=== PATIENT | male | born 1985 | race Caucasian/White ===

== ENCOUNTER 2016-11-20 09:44 | Emergency (ER) | payer OTHER, BC ==
[2016-11-20 09:49] VITALS: TEMP 97.4; BMI 28.0
[2016-11-20] MEDS ORDERED: IBUPROFEN 600 MG TABLET (FP) PO ONE ×2 (10:10→10:13)
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
[2016-11-20] MEDS ORDERED: IBUPROFEN 400 MG TABLET (FP) PO ONE (10:15)
[2016-11-20 11:05] VITALS: BP 125/78; PULSE 73
== END 2016-11-20 11:05 | disposition home or self-care (01) ==
LOC: JER 09:44
DX: S46.912A Strain of unspecified muscle, fascia and tendon at shoulder and upper arm level, left arm, initial encounter (principal); W18.39XA Other fall on same level, initial encounter; Y93.89 Activity, other specified; Y92.89 Other specified places as the place of occurrence of the external cause; Y99.0 Civilian activity done for income or pay; K21.9 Gastro-esophageal reflux disease without esophagitis
CPT/HCPCS: 73030-TC-LT; 99284-25

== ENCOUNTER 2017-06-05 19:29 | Emergency (ER) | payer BC, OTHER ==
--- NOTE | 2017-06-05 19:31 | PDOC ---
History of Present Illness - History of Present Illness Initial Comments: 06/05/17 19:47 The patient is a 31 year old male, with a significant past medical history of GERD, who presents to the emergency department with diarrhea and gas for 5 days. The patient states he ate all you can eat sushi two days prior to his onset of symptoms. He reports a subjective fever the first day of his diarrhea symptoms. He states he has had about 8 episodes of painful, watery stool in the past 4 hours. He denies hematochezia or abdominal pain. He does report feeling bloated and gassy. He states he was seen at [facility] yesterday where his lab results were within normal limits, however, presents because the diarrhea seemed worse today. He states he normally eats a bland diet, however , reportedly ate a lot of different food the two days before the onset of his symptoms. He also reports taking imodium TID with no alleviation of his symptoms. He reports a similar experience a year ago when he returned from [place], starting with fever and diarrhea. He denies chest pain, shortness of breath, headache and dizziness. He denies chills, nausea, vomit, and constipation. He denies dysuria, frequency, urgency and hematuria. PAST MEDICAL HISTORY: no significant history PAST SURGICAL HISTORY: no significant history FAMILY HISTORY: no pertinent history SOCIAL HISTORY: Pt lives with family and is employed. MEDICATIONS: reviewed ALLERGIES: As per nursing notes Adult ROS General: No fevers or chills, no weakness, no weight loss HEENT: No change in vision. No sore throat,. No ear pain CardioVascular: No chest pain or shortness of breath Respiratory:No cough, or wheezing. Gastrointestinal: (+) "diarrhea, gas, and bloating". no nausea, vomiting, or constipation, No rectal bleeding Genitourinary: No dysuria, hematuria, or frequency Musculoskeletal: No joint or muscle pain or swelling Neurologic: No headache, vertigo, dizziness or loss of consciousness Psychiatric: nor depression Skin: No rashes or easy bruising Endocrine: no increased thirst or abnormal weight change Allergic: no skin or latex allergy All other systems reviewed and normal Adult Exam: General: Well-nourished well-developed individual, no acute distress HEENT: Throat: Normal, tonsils normal, no erythema or exudate Neck: Supple, no meningeal signs, no lymphadenopathy Eyes::Pupils equal reactive and round, extraocular motion intact Chest: Nontender to palpation Cardiac: S1-S2 normal, regular rate and rhythm, no murmurs rubs or gallops Respiratory: Lungs clear to auscultation bilateral Abdomen: (+) mildly distended, increased bowel sounds, mild tenderness diffusely on palpation. Soft, Extremities: Warm, dry, no cyanosis, clubbing, or edema Skin: No rashes Neuro: Alert and oriented x3, nonfocal exam, grossly intact, normal gait Psych: Normal mood and affect <Teresa Tyson - Last Filed: 06/05/17 20:29> - General History Source: Patient Exam Limitations: No Limitations - History of Present Illness Initial Comments: 06/05/17 21:17 A portion of this note was documented by scribe services under my direction. I have reviewed the details of the note, within reason, and agree with the documentation. The case summary and management plan written by me. Assessment and plan: This is a 31-year-old male who comes in complaining of multiple episodes of profuse nonbloody diarrhea with some mucus in it. Patient said his initially at the onset the diarrhea was associated with some fevers and body aches. Patient has had symptoms for approximately 5 days now and began after eating some raw sushi. Patient otherwise denies any vomiting. Patient had a workup here in the emergency room that showed a normal white count and normal chemistries Patient was given 2 L of fluid and antispasmodic and the simethicone as he was experiencing some gas and bloating. Patient felt better after the medication. Given the fact the patient is had 5 days of diarrhea and it is increasing in frequency and greater than 10 episodes a day I am starting him on Cipro twice a day for a short course of antibiotics. Patient discharged home <Hortencia Wray I - Last Filed: 06/05/17 21:23> - General Stated Complaint: diarrhea Time Seen by Provider: 06/05/17 19:30 Past History <Teresa Tyson - Last Filed: 06/05/17 20:29> - Past Medical History GI Disorders: Yes (GERD) - Suicide/Smoking/Psychosocial Hx Smoking Status: No Smoking History: Never smoked Have you smoked in the past 12 months: No Number of Cigarettes Smoked Daily: 0 Hx Alcohol Use: No Drug/Substance Use Hx: No <Hortencia Wray I - Last Filed: 06/05/17 21:23> - Past Medical History Allergies/Adverse Reactions: Allergies Allergy/AdvReac Type Severity Reaction Status Date / Time No Known Allergies Allergy Verified 11/20/16 09:47 Home Medications: Ambulatory Orders Ciprofloxacin HCl [Cipro] 500 mg PO BID #6 tablet 06/05/17 Hyoscyamine Sulfate 0.125 mg SL TID #12 tab.subl 06/05/17 Ranitidine HCl [Zantac] 300 mg PO BID 06/05/17 Review of Systems - Review of Systems Able to Perform ROS?: Yes <Teresa Tyson - Last Filed: 06/05/17 20:29> *Physical Exam - Vital Signs Last Vital Signs Temp Pulse Resp BP Pulse Ox 99.5 F 72 18 129/82 99 06/05/17 19:30 06/05/17 19:30 06/05/17 19:30 06/05/17 19:30 06/05/17 19:30 <Teresa Tyson - Last Filed: 06/05/17 20:29> ED Treatment Course - LABORATORY CBC & Chemistry Diagram: 06/05/17 19:50 06/05/17 19:50 <Teresa Tyson - Last Filed: 06/05/17 20:29> - LABORATORY CBC & Chemistry Diagram: 06/05/17 19:50 06/05/17 19:50 <Hortencia Wray I - Last Filed: 06/05/17 21:23> *DC/Admit/Observation/Transfer - Attestations Scribe Attestion: 06/05/17 19:49 Documentation prepared by Teresa Tyson, acting as medical laboratory specialist for Hortencia Wray MD <Teresa Tyson - Last Filed: 06/05/17 20:29> - Discharge Dispostion Admit: No <Hortencia Wray I - Last Filed: 06/05/17 21:23> Diagnosis at time of Disposition: Acute infectious diarrhea - Discharge Dispostion Disposition: HOME Condition at time of disposition: Stable - Patient Instructions Additional Instructions: Take the antibiotic Cipro 1 tablet twice a day for the next 3 days. For the abdominal cramping take hyoscyamine one tablet as often as 3 times a day as needed. For the bloating take Gas-X it is [id number]. As long as you are continuing to have diarrhea Drink an electrolyte drinks such as Powerade, Gatorade or Pedialyte to replete your electrolytes that are lost in the diarrhea Return to the emergency department immediately with ANY new, persistent or worsening symptoms. Continue any medications as previously prescribed by your physician. You should follow up with your primary doctor as soon as possible regarding today's emergency department visit. . Please make sure your doctor reviews the results of your emergency evaluation. Thank you for coming to the Emergency Department today for your care. It was a pleasure to see you today. Please note that your evaluation is INCOMPLETE until you follow-up with your doctor.
[2017-06-05 19:35] VITALS: BP 129/82; PULSE 72; TEMP 99.5; BMI 28.8
[2017-06-05] MEDS ORDERED: SODIUM CHLORIDE 1,000 ML IV ONE ×2 (19:44→19:45)
[2017-06-05] MEDS ORDERED: SIMETHICONE 40 MG/0.6 ML BOTTLE PO STA (19:45)
[2017-06-05] MEDS ORDERED: HYOSCYAMINE SULFATE 0.125 MG *ODT PO ONE (19:46)
[2017-06-05] MEDS ORDERED: HYOSCYAMINE SULFATE 0.125 MG *ODT ONE (19:51)
[2017-06-05] MEDS ORDERED: SIMETHICONE 80 MG TAB.CHEW (FP) ONE (19:51)
[2017-06-05] MEDS ORDERED: SIMETHICONE 80 MG TAB.CHEW (FP) PO STA (19:52)
[2017-06-05 20:15] LABS: BASOPHIL 0.8 % (0-2.0); EOSINOPHIL 4.2 % (0-4.5); MCHC 34.1 g/dl (32.0-35.9); MEAN PLT VOLUME 8.4 fl (7.5-11.1); NEUTROPHILS 47.5 % (42.8-82.8); PLATELET COUNT 160 K/MM3 (134-434); RDW 12.1 % (11.9-15.9); WHITE BLOOD COUNT 5.4 K/mm3 (4.0-10.8)
[2017-06-05 20:28] LABS: ALBUMIN 4.1 g/dl (3.5-5.0); ALK PHOS 36 U/L (32-92); ANION GAP 1 (8-16); BILIRUBIN,TOTAL 0.7 mg/dl (0.2-1.0); CALCIUM 8.4 mg/dl (8.4-10.2); CO2 28 mmol/L (22-28); CREATININE 1.2 mg/dl (0.6-1.3); GLUCOSE,RANDOM 81 mg/dl (74-106); SGOT/AST 32 U/L (10-42); SGPT/ALT 30 U/L (10-40); TOT PROT 6.8 g/dl (6.4-8.3)
[2017-06-05] MEDS ORDERED: CIPROFLOXACIN 500 MG TABLET (RESTRICTED TO ID) PO ONE (20:48)
[2017-06-05] MEDS ORDERED: CIPROFLOXACIN 250 MG TABLET (RESTRICTED TO ID) PO ONE (21:07)
== END 2017-06-05 21:30 | disposition home or self-care (01) ==
LOC: FER 19:29
DX: A09 Infectious gastroenteritis and colitis, unspecified (principal)
CPT/HCPCS: 36415; 80053; 85025; 87045; 87046; 87205; 99282-25

== ENCOUNTER 2018-08-11 10:18 | Emergency (ER) | payer OTHER ==
[2018-08-11 10:28] VITALS: BP 120/75; PULSE 77; TEMP 98.1; BMI 27.3
[2018-08-11] MEDS ORDERED: ACETAMINOPHEN 325 MG TABLET (FP) PO ONE (10:35)
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
== END 2018-08-11 11:07 | disposition home or self-care (01) ==
LOC: JER 10:18
DX: S39.012A Strain of muscle, fascia and tendon of lower back, initial encounter (principal); X58.XXXA Exposure to other specified factors, initial encounter; Y93.89 Activity, other specified; Y92.89 Other specified places as the place of occurrence of the external cause; Y99.0 Civilian activity done for income or pay; K21.9 Gastro-esophageal reflux disease without esophagitis
CPT/HCPCS: 99282-25

== ENCOUNTER 2019-03-14 18:44 | Emergency (ER) | payer OTHER ==
[2019-03-14 18:51] VITALS: BP 100/79; PULSE 83; TEMP 99.5; BMI 28.8
[2019-03-14] MEDS ORDERED: IBUPROFEN 400 MG TABLET (FP) PO ONE ×2 (18:55→19:02)
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
== END 2019-03-14 19:20 | disposition home or self-care (01) ==
LOC: JERFT 18:44
DX: M54.2 Cervicalgia (principal); S16.1XXA Strain of muscle, fascia and tendon at neck level, initial encounter; X58.XXXA Exposure to other specified factors, initial encounter; Y93.89 Activity, other specified; Y92.410 Unspecified street and highway as the place of occurrence of the external cause; Y99.0 Civilian activity done for income or pay
CPT/HCPCS: 99282-25

== ENCOUNTER 2020-05-19 17:05 | Emergency (ER) | payer OTHER ==
[2020-05-19 17:10] VITALS: BP 128/82; PULSE 82; TEMP 97.9; BMI 28.1
[2020-05-19] MEDS ORDERED: NAPROXEN 500 MG TABLET ONE (17:28)
[2020-05-19] MEDS ORDERED: NAPROXEN 500 MG TABLET PO ONE (17:28)
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
== END 2020-05-19 17:33 | disposition home or self-care (01) ==
LOC: JERFT 17:05
DX: S16.1XXA Strain of muscle, fascia and tendon at neck level, initial encounter (principal)
CPT/HCPCS: 99284-25

== ENCOUNTER 2021-01-28 20:49 | Emergency (ER) | payer OTHER ==
[2021-01-28 21:37] VITALS: BP 114/70; PULSE 75; TEMP 98.7; BMI 28.0
[2021-01-28] MEDS ORDERED: ACETAMINOPHEN 500 MG TABLET (FP) PO ONE (22:08)
[2021-01-28] MEDS ORDERED: ACETAMINOPHEN 500 MG TABLET (FP) ONE (22:37)
== END 2021-01-28 22:55 | disposition home or self-care (01) ==
LOC: JER 20:49
DX: M54.5 Low back pain (principal)
CPT/HCPCS: 99283-25

== ENCOUNTER 2021-09-13 20:21 | Emergency (ER) | payer BC, OTHER ==
[2021-09-13] MEDS ORDERED: DIPHTH,PERTUSS(ACELL),TET VAC 0.5 ML VIAL IM ONE (20:56)
[2021-09-13 21:02] VITALS: BP 133/73; PULSE 72; TEMP 98.8; BMI 28.1
[2021-09-13] MEDS ORDERED: DIPHTH,PERTUSS(ACELL),TET 0.5 ML DISP.SYRIN IM ONE (21:02)
== END 2021-09-13 21:16 | disposition home or self-care (01) ==
LOC: FER 20:21
PROC: 3E0234Z Introduction of Serum, Toxoid and Vaccine into Muscle, Percutaneous Approach (ICD-10-PCS; principal; 2021-09-13)
DX: S61.211A Laceration without foreign body of left index finger without damage to nail, initial encounter (principal); W26.8XXA Contact with other sharp object(s), not elsewhere classified, initial encounter
CPT/HCPCS: 99282-25

== ENCOUNTER 2025-04-09 08:48 | Emergency (ER) | payer OTHER ==
[2025-04-09 09:03] VITALS: BP 117/78; PULSE 85; RESP 20; TEMP 98.1; BMI 31.3
[2025-04-09] MEDS: IBUPROFEN 600 MG TABLET (FP) PO ONE (10:14)
== END 2025-04-09 10:16 | disposition home or self-care (01) ==
LOC: JERFT 08:48
DX: S46.812A Strain of other muscles, fascia and tendons at shoulder and upper arm level, left arm, initial encounter (principal); X50.1XXA Overexertion from prolonged static or awkward postures, initial encounter; Y99.0 Civilian activity done for income or pay
CPT/HCPCS: 73030-TC-LT-FY; 99283-25